=== PATIENT | female | born 1970 | race Caucasian/White ===

== ENCOUNTER 2018-06-27 18:11 | Observation (INO) | payer OTHER ==
[2018-06-27 18:12] VITALS: BMI 27.2
--- NOTE | 2018-06-27 18:43 | ED PDOC ---
HPI: Chest Pain Time Seen by Provider: 06/27/18 18:30 Chief Complaint (Nursing): Chest Pain History Per: Patient Onset/Duration Of Symptoms: Days (3) Current Symptoms Are (Timing): Intermittent Episodes Severity: Mild Pain Scale Rating Of: 3 Quality: Aching Modifying Factors: None Exacerbating Factors: None Alleviating Factors: None Additional Complaint(s): Left sided chest pain x 3 days assoc with numbness left arm. Denies SOB. Has also c/o post headaches. Denies weakness or dizziness. NIHSS Stroke Scale - How Severe is the Stroke Level of Consciousness: 0=Alert LOC to Questions: 0=Both comments correct LOC to commands: 0=Obeys both correctly Best Gaze: 0=Normal Visual: 0=No visual loss Facial: 0=Normal Motor Arm - Left: 0=No drift Motor Arm - Right: 0=No drift Motor Leg - Left: 0=No drift Motor Leg - Right: 0=No drift Limb Ataxia: 0=Absent Sensory: 0=Normal Best Language: 0=No aphasia Dysarthia: 0=Normal articulation Extinction & Inattention (Neglect): 0=Normal, no object Score: 0 Past Medical History Vital Signs: Last Vital Signs Temp 98.7 F 06/27/18 18:19 Pulse 86 06/27/18 18:19 Resp 16 06/27/18 18:19 BP 139/94 H 06/27/18 18:19 Pulse Ox 98 06/27/18 18:19 - Medical History PMH: HTN, TIA Denies: Chronic Kidney Disease - Surgical History Surgical History: Cholecystectomy - Family History Family History: States: Unknown Family Hx - Immunization History Hx Tetanus Toxoid Vaccination: No Hx Influenza Vaccination: No Hx Pneumococcal Vaccination: No - Home Medications Home Medications: Ambulatory Orders Medication Instructions Recorded Aspirin [Ecotrin] 81 mg PO DAILY 30 Days #30 tabec 03/11/18 Enalapril Maleate [Vasotec] 10 mg PO DAILY 30 Days #30 tab 03/11/18 - Allergies Allergies/Adverse Reactions: Allergies Allergy/AdvReac Type Severity Reaction Status Date / Time No Known Allergies Allergy Verified 06/27/18 18:19 Review of Systems ROS Statement: Except As Marked, All Systems Reviewed And Found Negative Cardiovascular: Positive for: Chest Pain Neurological: Positive for: Headache Physical Exam - Reviewed Nursing Documentation Reviewed: Yes Vital Signs Reviewed: Yes - Physical Exam Appears: Positive for: Non-toxic, No Acute Distress Head Exam: Positive for: ATRAUMATIC, NORMAL INSPECTION, NORMOCEPHALIC Skin: Positive for: Normal Color, Warm, DRY Eye Exam: Positive for: EOMI, Normal appearance, PERRL ENT: Positive for: Normal ENT Inspection Neck: Positive for: Normal, Painless ROM Cardiovascular/Chest: Positive for: Regular Rate, Rhythm Respiratory: Positive for: CNT, Normal Breath Sounds Gastrointestinal/Abdominal: Positive for: Normal Exam, Soft Back: Positive for: Normal Inspection Extremity: Positive for: Normal ROM Neurologic/Psych: Positive for: Alert, Oriented. Negative for: Motor/Sensory Deficits - ECG O2 Sat by Pulse Oximetry: 98 Disposition - Clinical Impression Clinical Impression: Chest pain - Patient ED Disposition Is Patient to be Admitted: Transfer of Care - Disposition Disposition: Transfer of Care Disposition Time: 19:00 Condition: FAIR Patient Signed Over To: Kwadwo Schaefer
--- NOTE | 2018-06-27 19:14 | ED PDOC ---
- Laboratory Results Result Diagrams: 06/27/18 19:41 06/27/18 19:41 - ECG O2 Sat by Pulse Oximetry: 98 (RA) Pulse Ox Interpretation: Normal Medical Decision Making Medical Decision Making: Time: 1899 -- Patient endorsed to me by Dr. Holguin, pending labs. Scribe Attestation: Documented by Terri Ricketts acting as a scribe for Dr. Kwadwo Schaefer MD. Provider Scribe Attestation: All medical record entries made by the Scribe were at my direction and personally dictated by me. I have reviewed the chart and agree that the record accurately reflects my personal performance of the history, physical exam, medical decision making, and the department course for this patient. I have also personally directed, reviewed, and agree with the discharge instructions and disposition. Disposition Discussed With : Siddharth Whiteside Doctor Will See Patient In The: Hospital - Clinical Impression Clinical Impression: Chest pain - POA Present On Arrival: None Core Measure Indicators: Chest Pain - Disposition Disposition: Hospitalized as Observation Patient Disposition Time: 22:40 Condition: FAIR
[2018-06-27 19:48] LABS: BASO % 0.6 % (0.0-2.0); EOS # 0.1 K/uL (0.0-0.7); EOS % 1.4 % (0.0-4.0); HEMOGLOBIN 13.1 g/dL (12.0-16.0); LYMPH # 2.5 K/uL (1.0-4.3); LYMPH % 32.7 % (20.0-40.0); MEAN CELL VOLUME 91.4 fl (81.0-99.0); MEAN CORPUSCULAR HEMOGLOBIN 30.5 pg (27.0-31.0); MEAN CORPUSCULAR HGB CONC 33.4 g/dL (33.0-37.0); MEAN PLATELET VOLUME 9.9 fl (7.2-11.7); MONO # 0.6 K/uL (0.0-0.8); MONO % 8.4 % (0.0-10.0); NEUT # 4.4 K/uL (1.8-7.0); NEUT % 56.9 % (50.0-75.0); RBC 4.29 Mil/uL (3.80-5.20); RED CELL DISTRIBUTION WIDTH 13.4 % (11.5-14.5); WHITE BLOOD COUNT 7.7 K/uL (4.8-10.8)
[2018-06-27 19:56] LABS: ALB/GLOB RATIO 1.2 (1.0-2.1); ALBUMIN 4.5 g/dL (3.5-5.0); ALT/SGPT 32 U/L (9-52); AST/SGOT 27 U/L (14-36); BLOOD UREA NITROGEN 14 mg/dl (7-17); CALCIUM 9.7 mg/dL (8.4-10.2); GFR AFRICAN-AMERICAN > 60; GFR NON-AFRICAN AMERICAN > 60
[2018-06-28 06:05] LABS: HEMOGLOBIN 13.3 g/dL (12.0-16.0); MEAN CELL VOLUME 90.4 fl (81.0-99.0); MEAN CORPUSCULAR HEMOGLOBIN 30.9 pg (27.0-31.0); MEAN CORPUSCULAR HGB CONC 34.1 g/dL (33.0-37.0); RBC 4.29 Mil/uL (3.80-5.20); RED CELL DISTRIBUTION WIDTH 13.6 % (11.5-14.5); WHITE BLOOD COUNT 6.1 K/uL (4.8-10.8)
[2018-06-28 06:19] LABS: ALB/GLOB RATIO 1.2 (1.0-2.1); ALBUMIN 4.2 g/dL (3.5-5.0); ALT/SGPT 30 U/L (9-52); AST/SGOT 25 U/L (14-36); BLOOD UREA NITROGEN 14 mg/dl (7-17); CALCIUM 9.5 mg/dL (8.4-10.2); GFR AFRICAN-AMERICAN > 60; GFR NON-AFRICAN AMERICAN > 60
--- NOTE | 2018-06-28 07:11 | RAD ---
Date of service: 06/27/2018 HISTORY: Chest pain COMPARISON: No prior. TECHNIQUE: Chest PA and lateral FINDINGS: LUNGS: No active pulmonary disease. PLEURA: No significant pleural effusion identified. No pneumothorax apparent. CARDIOVASCULAR: Normal. OSSEOUS STRUCTURES: No significant abnormalities. VISUALIZED UPPER ABDOMEN: Normal. OTHER FINDINGS: None. IMPRESSION: No active disease.
--- NOTE | 2018-06-28 07:52 | CARD ---
APPROVED REPORT Date of service: 06/27/2018 <Conclusion> Normal sinus rhythm Possible Left atrial enlargement Left ventricular hypertrophy Cannot rule out Septal infarct, age undetermined Abnormal ECG
[2018-06-28 07:55] VITALS: RESP 18; O2SAT 98
--- NOTE | 2018-06-28 11:43 | CP.PCM.CON ---
History of Present Illness - History of Present Illness History of Present Illness: This 47-year-old female came to the emergency room after having experienced retrosternal discomfort continuously for 3 days quite unconnected to her physical activities. The patient is able to walk up to a mile to mile and a half without any difficulty and can climb couple of flights of stairs without any difficulty. She is a hypertensive for more than 5-6 years and by her account has taken her antihypertensives medications regularly. She also indicates that there are instances when her physician findings her blood pressure not appropriately controlled. She admits to eating salty food in the form of preserved food and salted cheeses or pizza. She is not a smoker or diabetic. Her mother was a diabetic and did have vascular heart disease. Aforementioned chest pain did not radiate to her jaw or arms and was not accompanied by any nausea vomiting or perspiration. Physical examination shows a young female was quite alert awake coherent afebrile and free of chest pain at this point. There was no area of tenderness in her record him. Her heart rate was 64 bpm and her blood pressure was 164/70 mmHg. Her jugular venous pressure was not elevated and there was no edema over her lower extremity. The pedal pulses were well felt. Hi right and breast did not reveal anything abnormal. There were no carotid bruits. The apex was not palpable. The first and second heart sounds were normal. There was no murmur or gallop. There were no rales. Her electrocardiogram showed sinus rhythm with a pattern of left ventricular hypertrophy. Troponin levels where consistently normal indicating no evidence of myocyte injury. The rest of her labs were noted. Impression: Atypical chest pain with no evidence of acute coronary syndrome. History of hypertension. I have explained to the patient the need for low-salt diet and explained the low-salt diet to her. Her present medications consisting of MADY inhibitor and hydrochlorothiazide in that case should control her blood pressure well. The patient may be allowed to return home to continue her management as an outpatient. Past Patient History - Past Medical History & Family History Past Medical History?: Yes - Past Social History Smoking Status: Never Smoked - CARDIAC Hx Cardiac Disorders: Yes Hx Hypertension: Yes - PULMONARY Hx Respiratory Disorders: No - NEUROLOGICAL Hx Neurological Disorder: Yes Hx Transient Ischemic Attacks (TIA): Yes - HEENT Hx HEENT Problems: No - RENAL Hx Chronic Kidney Disease: No - ENDOCRINE/METABOLIC Hx Endocrine Disorders: No - HEMATOLOGICAL/ONCOLOGICAL Hx Blood Disorders: No - INTEGUMENTARY Hx Dermatological Problems: No - MUSCULOSKELETAL/RHEUMATOLOGICAL Hx Musculoskeletal Disorders: No Hx Falls: No - GASTROINTESTINAL Hx Gastrointestinal Disorders: No - GENITOURINARY/GYNECOLOGICAL Hx Genitourinary Disorders: No - PSYCHIATRIC Hx Psychophysiologic Disorder: No Hx Substance Use: No - SURGICAL HISTORY Hx Surgeries: Yes Hx Cholecystectomy: Yes - ANESTHESIA Hx Anesthesia: No Hx Anesthesia Reactions: No Meds Allergies/Adverse Reactions: Allergies Allergy/AdvReac Type Severity Reaction Status Date / Time No Known Allergies Allergy Verified 06/27/18 18:19 - Medications Medications: Current Medications Aspirin (Ecotrin) 81 mg PO DAILY [facility] Last Admin: 06/28/18 09:03 Dose: 81 mg Gabapentin (Neurontin) 300 mg PO [facility] Hydrochlorothiazide (Microzide) 12.5 mg PO DAILY [facility] Last Admin: 06/28/18 09:03 Dose: 12.5 mg Lisinopril (Zestril) 10 mg PO DAILY [facility] Last Admin: 06/28/18 09:02 Dose: 10 mg Results - Vital Signs Recent Vital Signs: Last Vital Signs Temp 97.9 F 06/28/18 07:55 Pulse 66 06/28/18 09:02 Resp 18 06/28/18 07:55 BP 138/89 06/28/18 09:02 Pulse Ox 98 06/28/18 07:55 - Labs Result Diagrams: 06/28/18 04:31 06/28/18 04:31 Labs: Laboratory Results - last 24 hr 06/27/18 06/27/18 06/28/18 19:41 19:41 04:31 WBC 7.7 6.1 RBC 4.29 4.29 Hgb 13.1 13.3 Hct 39.2 38.8 MCV 91.4 90.4 MCH 30.5 30.9 MCHC 33.4 34.1 RDW 13.4 13.6 Plt Count 225 216 MPV 9.9 Neut % (Auto) 56.9 Lymph % (Auto) 32.7 [place] % (Auto) 8.4 Eos % (Auto) 1.4 Baso % (Auto) 0.6 Neut # (Auto) 4.4 Lymph # (Auto) 2.5 [place] # (Auto) 0.6 Eos # (Auto) 0.1 Baso # (Auto) 0.0 Sodium 141 Potassium 4.1 Chloride 106 Carbon Dioxide 26 Anion Gap 13 BUN 14 Creatinine 0.8 Est GFR ( Amer) > 60 Est GFR (Non-Af Amer) > 60 Random Glucose 94 Calcium 9.7 Total Bilirubin 0.6 AST 27 ALT 32 Alkaline Phosphatase 62 Troponin I < 0.0120 Total Protein 8.2 Albumin 4.5 Globulin 3.8 Albumin/Globulin Ratio 1.2 06/28/18 04:31 WBC RBC Hgb Hct MCV MCH MCHC RDW Plt Count MPV Neut % (Auto) Lymph % (Auto) [place] % (Auto) Eos % (Auto) Baso % (Auto) Neut # (Auto) Lymph # (Auto) [place] # (Auto) Eos # (Auto) Baso # (Auto) Sodium 143 Potassium 4.3 Chloride 107 Carbon Dioxide 28 Anion Gap 12 BUN 14 Creatinine 0.8 Est GFR ( Amer) > 60 Est GFR (Non-Af Amer) > 60 Random Glucose 103 Calcium 9.5 Total Bilirubin 0.7 AST 25 ALT 30 Alkaline Phosphatase 64 Troponin I < 0.0120 Total Protein 7.7 Albumin 4.2 Globulin 3.6 Albumin/Globulin Ratio 1.2
[2018-06-28 12:14] VITALS: PULSE 71; TEMP 98.5
[2018-06-28 12:38] VITALS: BP 150/89
--- NOTE | 2018-06-28 14:42 | CP.PCM.HP ---
History of Present Illness - History of Present Illness History of Present Illness: CC: CP. 47 y/o F, Hx HT and questionable Lupus, came to [facility] on 06/27/18 for evaluation of gradually increased chest pain L sided, conor was intermittent, pressured type, moderate intensity 6:10 associated to L arm pain and L neck x 3 days [employer], Pt using ASA with no relief. Worsening symptoms: Occasional dry cough, intermittent headache and some numbness in tongue that began in AM DOA , today symptoms subsided. Aggravated factor: Not in compliance with intake of daily medication. Pt denied: fever, chills, n/v/d, abdominal pain. urinary symptoms, SOB, sick contact, recent travel out of [facility]. CXR: No active disease. EKG: Normal sinus rhythm. Possible L atrial enlargement, L ventricular hypertrophy, cannot ruled out septal infarct, age undetermined. Present on Admission - Present on Admission Any Indicators Present on Admission: No Review of Systems - Constitutional Constitutional: Headache - EENT Eyes: Other (negative) Ears: Other (negative) Nose/Mouth/Throat: Other (negative) - Cardiovascular Cardiovascular: Chest Pain (left sided) - Respiratory Respiratory: Cough (occasional) - Gastrointestinal Gastrointestinal: Other (negative) - Genitourinary Genitourinary: Other (negative) - Musculoskeletal Musculoskeletal: Neck Pain, Numbness, Other (L arm pain) - Integumentary Integumentary: Other (negative) - Neurological Neurological: Focal Weakness, Headaches - Psychiatric Psychiatric: Other (negative) - Endocrine Endocrine: Other (negative) - Hematologic/Lymphatic Hematologic: Other (negative) Past Patient History - Past Medical History & Family History Past Medical History?: Yes Pertinent Family History: Unknown - Past Social History Smoking Status: Never Smoked Alcohol: None Drugs: Denies Home Situation {Lives}: With Family - CARDIAC Hx Cardiac Disorders: Yes Hx Hypertension: Yes - PULMONARY Hx Respiratory Disorders: No - NEUROLOGICAL Hx Neurological Disorder: Yes Hx Transient Ischemic Attacks (TIA): Yes - HEENT Hx HEENT Problems: No - RENAL Hx Chronic Kidney Disease: No - ENDOCRINE/METABOLIC Hx Endocrine Disorders: No - HEMATOLOGICAL/ONCOLOGICAL Hx Blood Disorders: No - INTEGUMENTARY Hx Dermatological Problems: No - MUSCULOSKELETAL/RHEUMATOLOGICAL Hx Musculoskeletal Disorders: No Hx Falls: No - GASTROINTESTINAL Hx Gastrointestinal Disorders: No - GENITOURINARY/GYNECOLOGICAL Hx Genitourinary Disorders: No - PSYCHIATRIC Hx Psychophysiologic Disorder: No Hx Substance Use: No - SURGICAL HISTORY Hx Surgeries: Yes Hx Cholecystectomy: Yes - ANESTHESIA Hx Anesthesia: No Hx Anesthesia Reactions: No Meds Allergies/Adverse Reactions: Allergies Allergy/AdvReac Type Severity Reaction Status Date / Time No Known Allergies Allergy Verified 06/27/18 18:19 Physical Exam - Constitutional Appears: No Acute Distress - Head Exam Head Exam: NORMAL INSPECTION - Eye Exam Eye Exam: PERRL - ENT Exam ENT Exam: Normal Exam - Neck Exam Neck exam: Positive for: Normal Inspection - Respiratory Exam Respiratory Exam: Clear to Auscultation Bilateral - Cardiovascular Exam Cardiovascular Exam: REGULAR RHYTHM - GI/Abdominal Exam GI & Abdominal Exam: Normal Bowel Sounds, Soft - Extremities Exam Extremities exam: Positive for: normal inspection - Back Exam Back exam: CVA tenderness (L) - Neurological Exam Neurological exam: Alert, Oriented x3, Reflexes Normal - Psychiatric Exam Psychiatric exam: Normal Mood - Skin Skin Exam: Normal Color, Warm Results - Vital Signs Recent Vital Signs: Last Vital Signs Temp 98.5 F 06/28/18 12:14 Pulse 71 06/28/18 12:14 Resp 18 06/28/18 12:14 BP 150/89 06/28/18 12:14 Pulse Ox 98 06/28/18 12:14 reviewed Jason - Labs Result Diagrams: 06/28/18 04:31 06/28/18 04:31 Labs: Laboratory Results - last 24 hr 06/27/18 06/27/18 06/28/18 19:41 19:41 04:31 WBC 7.7 6.1 RBC 4.29 4.29 Hgb 13.1 13.3 Hct 39.2 38.8 MCV 91.4 90.4 MCH 30.5 30.9 MCHC 33.4 34.1 RDW 13.4 13.6 Plt Count 225 216 MPV 9.9 Neut % (Auto) 56.9 Lymph % (Auto) 32.7 [place] % (Auto) 8.4 Eos % (Auto) 1.4 Baso % (Auto) 0.6 Neut # (Auto) 4.4 Lymph # (Auto) 2.5 [place] # (Auto) 0.6 Eos # (Auto) 0.1 Baso # (Auto) 0.0 Sodium 141 Potassium 4.1 Chloride 106 Carbon Dioxide 26 Anion Gap 13 BUN 14 Creatinine 0.8 Est GFR ( Amer) > 60 Est GFR (Non-Af Amer) > 60 Random Glucose 94 Calcium 9.7 Total Bilirubin 0.6 AST 27 ALT 32 Alkaline Phosphatase 62 Troponin I < 0.0120 Total Protein 8.2 Albumin 4.5 Globulin 3.8 Albumin/Globulin Ratio 1.2 06/28/18 06/28/18 04:31 13:15 WBC RBC Hgb Hct MCV MCH MCHC RDW Plt Count MPV Neut % (Auto) Lymph % (Auto) [place] % (Auto) Eos % (Auto) Baso % (Auto) Neut # (Auto) Lymph # (Auto) [place] # (Auto) Eos # (Auto) Baso # (Auto) Sodium 143 Potassium 4.3 Chloride 107 Carbon Dioxide 28 Anion Gap 12 BUN 14 Creatinine 0.8 Est GFR ( Amer) > 60 Est GFR (Non-Af Amer) > 60 Random Glucose 103 Calcium 9.5 Total Bilirubin 0.7 AST 25 ALT 30 Alkaline Phosphatase 64 Troponin I < 0.0120 < 0.0120 Total Protein 7.7 Albumin 4.2 Globulin 3.6 Albumin/Globulin Ratio 1.2 reviewed J.P. - EKG Data EKG comments: reviewed J.P. - Imaging and Cardiology Chest x-ray Status: Report reviewed by me (TaylerP.) Assessment & Plan (1) Chest pain, atypical Status: Acute Priority: High (2) TIA (transient ischemic attack) Status: Acute Priority: High (3) Hypertension Status: Chronic Priority: Medium - Assessment and Plan (Free Text) Plan: Pt was seen and cleared for discharge by Cardiology wit impression of CP Atypical, no evidence of acute coronary syndrome. Pt condition improved, no CP or any discomfort, stable to be discharged, see instruction medication sheet, f/ u with PMD and Cardiology in a week. Cardiology consult appreciated. - Date & Time Date: 06/28/18 Time: 12:45
== END 2018-06-28 15:22 | disposition home or self-care (01) ==
LOC: H.ER 18:11 → H.ERHOLD 22:41 → H.TEL 06-28 01:59
PROVIDERS: ADMIT Internal Medicine Pulmonary Disease; ATTEND Internal Medicine Pulmonary Disease
DX: R07.89 Other chest pain (principal); I10 Essential (primary) hypertension; Z86.73 Personal history of transient ischemic attack (TIA), and cerebral infarction without residual deficits
CPT/HCPCS: 36415; 71046; 80053; 81025; 84484; 85025; 85027; 93005; 99285; G0378